=== PATIENT | female | born 1965 | race Caucasian/White ===

== ENCOUNTER → 2019-09-17 10:05 | Outpatient (CLI) | payer BC, SELFPAY ==
--- NOTE | 2019-09-17 10:12 | XR_ITS ---
PROCEDURE: XR COCCYX 2V CLINICAL INDICATION: LUMBARGO WITH LT SCIATICA, COCCYDYNIA COMPARISON: ABDPELW CT ABD PELVIS W/ CONTRAST from 11/18/2015 FINDINGS: There is 90 degrees anterior angulation of the coccyx. There is some coarse calcification noted within the soft tissues superficial to the area of angulation. This had a similar appearance on an older CT scan of 11/18/2015. IMPRESSION: 1. Abrupt anterior angulation of the coccyx. 2. Coarse calcification within the soft tissues overlying the coccyx which could be due to old injury/heterotopic ossification, chronic inflammation or infection. Consider CT scan of the coccyx for further evaluation Dictated by: Sukh Neumann MD 09/17/2019 17:38 Electronically signed by Sukh Neumann MD in [place] 09/17/2019 17:38
--- NOTE | 2019-09-17 10:12 | XR_ITS ---
PROCEDURE: XR LUMBAR SPINE MIN 4V CLINICAL INDICATION: LUMBARGO WITH LT SCIATICA, COCCYDYNIA COMPARISON: No exams were available for comparison FINDINGS: Normal alignment. No fracture or dislocation. Partial lumbarization of S1. Generalized vascular calcification. IMPRESSION: Negative lumbar spine Dictated by: Sukh Neumann MD 09/17/2019 17:35 Electronically signed by Sukh Neumann MD in [facility] 09/17/2019 17:35
== END ==
PROVIDERS: PCP Nurse Practitioner Family; Visit Provider Nurse Practitioner Family
DX: M54.42 Lumbago with sciatica, left side (principal); M53.3 Sacrococcygeal disorders, not elsewhere classified
CPT/HCPCS: 72110; 72220

== ENCOUNTER → 2020-05-25 12:19 | Outpatient (CLI) | payer BC, SELFPAY | PROVIDERS: PCP Nurse Practitioner Family; Visit Provider Nurse Practitioner Family | DX: R00.2 Palpitations (principal) | CPT/HCPCS: 93225; 93226 ==

== ENCOUNTER → 2020-05-27 14:21 | Outpatient (CLI) | payer BC, SELFPAY | PROVIDERS: Visit Provider Family Medicine | DX: R19.7 Diarrhea, unspecified (principal); D72.829 Elevated white blood cell count, unspecified | CPT/HCPCS: 87045; 87205; 87493 ==

== ENCOUNTER → 2020-05-28 11:29 | Outpatient (CLI) | payer BC, SELFPAY ==
--- NOTE | 2020-05-28 11:44 | XR_ITS ---
PROCEDURE: XR CHEST AP CLINICAL HISTORY: Shortness of air, smoker COMPARISON: CXR CHEST(2 VIEWS-NOT PORTABLE) from 01/04/2016 CXR CHEST(2 VIEWS-NOT PORTABLE) from 04/10/2017 XR CHEST 2V from 01/07/2020 FINDINGS: The cardiomediastinal silhouette and pulmonary vascularity are within normal limits. The lungs are clear without infiltrates, suspicious nodules, or pleural effusions. Is thoracic curvature convex. Faint nodular opacity overlies lower may be due to nipple IMPRESSION: No acute findings. Dictated by: Sukh Neumann MD 05/28/2020 15:28 Electronically signed by Sukh Neumann MD in [place] 05/28/2020 15:28
[2020-05-28 12:31] LABS: Coronavirus 19 IgG Antibody Negative (Negative); Coronavirus 19 IgM Antibody Negative (Negative)
[2020-05-30 12:08] LABS: Peripheral Smear Review Scanned Result
== END ==
PROVIDERS: PCP Nurse Practitioner Family; Visit Provider Nurse Practitioner Family
DX: Z03.818 Encounter for observation for suspected exposure to other biological agents ruled out (principal); D72.829 Elevated white blood cell count, unspecified
CPT/HCPCS: 71045; 86328; 87040

== ENCOUNTER → 2020-06-19 08:51 | Outpatient (CLI) | payer BC, SELFPAY ==
--- NOTE | 2020-06-19 08:55 | CT_ITS ---
PROCEDURE: CT SINUS WO CON CLINICAL HISTORY: LEUKOCYTOSIS,DIZZINESS,DENTAL ABSCESS Dental abscess with possible sinus involvement on the left COMPARISON: No exams were available for comparison TECHNIQUE: Axial images obtained with sagittal and coronal reformats. All CT scans at the facility use one or more dose reduction, viz: automated exposure control, ma/kV adjustment per patient size (including targeted exams where dose is matched to indication, i.e. head), or iterative reconstruction technique. FINDINGS: No significant mucosal thickening or sinus air-fluid levels. The frontal, ethmoid, sphenoid, and maxillary sinuses have an unremarkable appearance. No mastoid effusion. There are bilateral numerous fillings in the teeth with artifact. The molar roots extend to the floor of the sinuses but do not extend through the wall of the sinuses. No obvious abscess or bony erosive changes there is mild prominence of the tonsils left greater than right which could be due to underlying inflammatory changes. Scattered small nodes are present in the neck. IMPRESSION: No acute finding CT sinuses. Mild prominence of the tonsils which could be due to underlying inflammatory change with scattered small cervical lymph nodes Dictated by: Sukh Neumann MD 06/19/2020 17:49 Electronically signed by Sukh Neumann MD in [place] 06/19/2020 17:49
== END ==
PROVIDERS: PCP Nurse Practitioner Family; Visit Provider Nurse Practitioner Family
DX: K04.7 Periapical abscess without sinus (principal); R42 Dizziness and giddiness; D72.829 Elevated white blood cell count, unspecified
CPT/HCPCS: 70486

== ENCOUNTER → 2020-07-13 10:00 | Outpatient (CLI) | payer BC, SELFPAY ==
--- NOTE | 2020-07-13 10:03 | MR_ITS ---
PROCEDURE: MR HEAD/BRAIN WO CON CLINICAL INDICATION: DIZZINESS, LEUKOCYTOSIS DIZZINESS AND HEADACHE ON LT SIDE. LEUKOCYTOSIS. PRIOR MRA 08-14-13 COMPARISON: No exams were available for comparison TECHNIQUE: Routine multiplanar multi echo sequences are performed without gadolinium enhancement. FINDINGS: No midline shift, mass effect, intracranial hemorrhage, or hydrocephalus is evident. The cerebellopontine angles, cerebellum, and brainstem have an unremarkable appearance. There are few subcortical and periventricular T2 white matter hyperintensities which do not demonstrate restricted diffusion and may be due to small ischemic gliotic foci. The pituitary, optic chiasm, corpus callosum, and craniocervical junction have an unremarkable appearance. There is fluid signal intensity in the right mastoid sinus. No paranasal sinus air-fluid levels evident. IMPRESSION: 1. No acute intracranial findings. 2. Right mastoid sinus disease. 3. Scattered periventricular and subcortical T2 white matter hyperintensities which may be due to ischemic gliotic change from microvascular disease. Differential diagnosis would include migraine headache and demyelinating process. Correlation with clinical parameters needed. Dictated by: Sukh Neumann MD 07/14/2020 12:55 Sukh Neumann MD in [place] 07/14/2020 12:55
== END ==
PROVIDERS: PCP Nurse Practitioner Family; Visit Provider Nurse Practitioner Family
DX: R42 Dizziness and giddiness (principal); D72.829 Elevated white blood cell count, unspecified
CPT/HCPCS: 70551

== ENCOUNTER → 2020-12-03 16:15 | Outpatient (CLI) | payer BC, SELFPAY | PROVIDERS: PCP Nurse Practitioner; Visit Provider Nurse Practitioner | DX: Z20.828 Contact with and (suspected) exposure to other viral communicable diseases (principal); U07.1 COVID-19 | CPT/HCPCS: U0003 ==

== ENCOUNTER → 2021-01-18 15:49 | Outpatient (CLI) | payer BC, SELFPAY ==
--- NOTE | 2021-01-18 15:51 | CA_ITS ---
APPROVED REPORT EXAM: Comprehensive 2D, Doppler, and color-flow Echocardiogram Project Eng: Gabe RCS, RVS Ht: 5 ft 3 in Wt: 121lbs BSA: 1.56 BP: 118/57 mmHg Indications: Hx-MVP, Pre-op 2D Dimensions LVOT 1.72 cm (M/F) 1.5-2.5 LA Volume 46.90 mL LA Volume Index 29.30 mL/m2 (M/F) 16-34 M-Mode Dimensions RVDd 1.28 cm (0.9-2.6) LA Diam 3.77 cm (1.9-4.0) LVDd 5.09 cm (3.5-5.7) Ao Diam 1.60 cm (2.0-3.7) LVDs 3.10 cm (3.5-5.7) IVSd 0.81 cm (0.6-1.1) PWd 0.84 cm (0.6-1.1) EF (Teich) 66.60% FS 36.90% EDV (Teich) 113.40 mL TAPSE 2.62 (<1.7) ESV (Teich) 37.90 mL LV Diastology E Decel Time 203.00 (160-240 msec) E/A Ratio 1.54 MED E' 10.60 (< 7 cm/sec) MED A' 8.60 cm/s E'/MED E' Ratio 9.75 (>14) LAT E' 10.30 (<10 cm/sec) LAT A' 7.30 cm/s E/LAT E' Ratio 10.04 (>14) Aortic Valve AoV Peak Adis. 150.00 (50-130 cm/s) AO Peak GR. 9.00 mmHg AO Mean GR. 4.90 (<5 mmHg) AO VTI 31.56 (18-25 cm) Mitral Valve MV A Velocity 67.00 (40-130 cm/s) E/A Ratio 1.54 MV Decel. Time 203.00 (160-240 ms) Pulmonary Valve PV Peak Velocity 101.00 (50-150 cm/s) Tricuspid Valve TR P. Velocity 246.00 cm/s RAP Estimate 10.00 mmHg RVSP 34.30 mmHg Left Ventricle Left atrium is normal size, left ventricle is normal size, there is no concentric left ventricular hypertrophy, visually estimated ejection fraction 55% with no regional wall motion abnormality, diastolic parameters are within normal range. Right Ventricle Right atrium and right ventricle are normal size and contractility. Aortic Valve Aortic valve is grossly normal, there is no aortic stenosis or aortic insufficiency. Mitral Valve Mitral valve is minimally thickened, there is no obvious mitral valve prolapse, there is trace mitral regurgitation. Tricuspid Valve Tricuspid valve grossly normal, there is trace tricuspid regurgitation. Pulmonic Valve Pulmonic valve is poorly visualized. Great Vessels Aortic root is normal size. Pericardium No significant pericardial effusion noted. Conclusion 1. Normal left ventricular size, preserved left ventricular systolic function, visually estimated ejection fraction 55% with no regional wall motion abnormality, diastolic parameters are within normal range. 2. No obvious mitral valve prolapse seen, there is trace mitral regurgitation. 3. No significant pericardial effusion noted. Electronically signed by : Chilo Solomon, 01/18/2021 19:05:03
== END ==
PROVIDERS: PCP Family Medicine; Visit Provider Urology
DX: Z01.810 Encounter for preprocedural cardiovascular examination (principal); R06.00 Dyspnea, unspecified; I34.1 Nonrheumatic mitral (valve) prolapse
CPT/HCPCS: 93306

== ENCOUNTER → 2021-01-20 08:16 | Outpatient (CLI) | payer BC, SELFPAY ==
[2021-01-20 08:52] LABS: Basophils # 0.2 K/mm3 (0-0.2); Basophils % 0.9 % (0.1-2.0); Eosinophils # 0.1 K/mm3 (0.0-0.4); Eosinophils % 0.8 % (0.1-12.0); Hematocrit 44.3 % (37.0-47.0); Hemoglobin 14.1 g/dL (12.2-16.2); Lymphocytes # 2.8 K/mm3 (0.7-4.5); Lymphocytes % 16.5 % (10-50); Mean Corpuscular HGB Conc 31.7 g/dL (31.8-35.4); Mean Corpuscular Hemoglobin 29.4 pg (27.0-31.2); Mean Corpuscular Volume 92.6 fl (81-99); Mean Platelet Volume 7.7 fl (7.4-10.4); Monocytes # 0.8 K/mm3 (0.1-1.0); Monocytes % 4.9 % (1.7-9.3); Neutrophils % 76.8 % (37.0-80.0); Platelet Count 387 K/mm3 (142-424); Red Blood Count 4.79 M/mm3 (4.20-5.40); Red Cell Distribution Width 13.7 % (11.5-17.5)
[2021-01-20 08:54] LABS: MANUAL DIFFERENTIAL MANUAL DIFFERENTIAL (MANUAL DIFF)
[2021-01-20 09:57] LABS: Lymphocytes % 8 % (10-50); Monocytes % 2 % (2-9); Neutrophils % 90 % (42-76); Total Cells Counted 100
[2021-01-20 09:58] LABS: Platelet Estimate Normal; RBC Morphology Normal
== END ==
PROVIDERS: PCP Family Medicine; Visit Provider Otolaryngology
DX: Z01.818 Encounter for other preprocedural examination (principal); Z20.822 Contact with and (suspected) exposure to COVID-19; L57.0 Actinic keratosis
CPT/HCPCS: 36415; 85007; 85025; U0003

== ENCOUNTER 2021-01-21 06:13 | Day surgery (SDC) | payer BC, SELFPAY ==
[2021-01-15 15:09] VITALS: BMI 22.1
[2021-01-21 06:31] VITALS: BP 118/56; PULSE 76; RESP 18; TEMP 36.3; O2SAT 99; BMI 22.1
--- NOTE | 2021-01-21 07:07 | HMH.ANESCL ---
[facility] Anesthesia Checklist - Structural Data Admitted From: Home Planned Operative Procedure/s: excision neoplasm face x 2 Consent for Planned Operative Procedure(s) Verified: Yes - Additional verifications Anesthesia Reactions: No Hx Blood Transfusions: No Blood Transfusion Reaction: No - Airway Assessment C-Spine Mobility Assessed: Yes TMJ Mobility Assessed: Yes Dentition: Partials - Neurological Assessment Level of Consciousness: Awake, Alert, Appropriate - Anesthesia Plan Anesthesia Risk discussed: Yes Anesthesia Plan: Verified ASA Class: II Anesthesia Type: MAC [facility] History I have reviewed the patient's past medical history: Yes Medical History: Reports:: Chronic Obstructive Pulmonary Disease (COPD), Hyperlipidemia, Hypertension, MRSA (groin) Denies:: Cancer, Diabetes Mellitus Type 1, Diabetes Mellitus Type 2, Internal Pacemaker, Seizures *Have you ever received a pneumonia vaccine?: No *Have you received a flu vaccine this season?: Yes Other Medical History: Reports: Other. Denies: Blood Transfusion Reaction Anesthesia experience/problems:: none Laterality Cases: Left: Other Other Surgeries: Yes: , Sinus Surgery, Other. No: Pacemaker Amputation: No Fractures: No - *Social History Last grade of school completed: High school graduate Smoking Status: Current every day smoker Tobacco Type: cigarettes # Packs/Day (cigarettes): 1 Alcohol Intake: never Substance Use Type: denies use *Occupational Status:: unemployed Housing: house Household Members: spouse *Travel in the last 8 weeks: None Family Hx:: Diabetes
[2021-01-21 08:18] VITALS: BP 97/70; PULSE 82; RESP 18; TEMP 36.4; O2SAT 95
--- NOTE | 2021-01-21 08:25 | HMH.OPNOTE ---
Date of procedure: 01/21/21 Pre-op Diagnosis:: 1. Right side of nose 2.5 cm 2. As 1 right cheek 2.2 cm Post-op Diagnosis:: Same Procedure performed:: 1. 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 Excision of neoplasm right cheek 2.2 cm with tissue rearrangement Z-plasty repair Surgeon:: Jose M Thakur MD WOOD BORING MACHINE OPERATOR:: Boone Hemphill [facility] Anesthesia: GETA, MAC Estimated blood loss (mL): 5 Operative findings:: Same Operative note:: With the patient under a MAC type of anesthesia the face was prepped and draped the eyes were protected with Steri-Strips the perilesional areas on the nose and right cheek were infiltrated with a total of 3.5 cc of 2% lidocaine with epinephrine. The lesion on the right side of the nose measured 2.5 cm the marked out was incised and the lesion was excised to the level of the lower lateral cartilages. Stopped with bipolar cautery Surgicel snow was placed in the defect lateral incisions were made and a tissue rearrangement Z-plasty repair was done with interrupted 3-0 nylon sutures. None the right cheek was marked out it measured 2.2 cm the ryan up was incised and the lesion was excised and submitted bleeding was stopped with bipolar cautery. Anterior and posterior incisions were made and a tissue rearrangement Z-plasty repair was done after Surgicel snow was placed in the defect with 3-0 nylon sutures a Dermabond dressing was applied to both sites and the patient was sent to recovery in good general condition blood loss was 5 cc and completely stopped. Signed Jose M Thakur MD Condition: stable Disposition: PACU Complications:: None
[2021-01-21 08:33] VITALS: BP 99/57; PULSE 68; RESP 18; TEMP 36.4; O2SAT 98
[2021-01-21 08:50] VITALS: BP 108/64; PULSE 64; RESP 18; TEMP 36.4; O2SAT 98
== END 2021-01-21 08:50 | disposition home or self-care (01) ==
LOC: OR 06:14
PROVIDERS: PCP Family Medicine; Visit Provider Otolaryngology
PROC: (CPT 14060; principal; 2021-01-21 07:30)
DX: L57.0 Actinic keratosis (principal); J44.9 Chronic obstructive pulmonary disease, unspecified; E78.5 Hyperlipidemia, unspecified; I10 Essential (primary) hypertension; Z86.14 Personal history of Methicillin resistant Staphylococcus aureus infection; Z72.0 Tobacco use; Z86.79 Personal history of other diseases of the circulatory system; Z88.6 Allergy status to analgesic agent; Z88.1 Allergy status to other antibiotic agents; Z88.0 Allergy status to penicillin; Z88.8 Allergy status to other drugs, medicaments and biological substances
CPT/HCPCS: 14060; 14040; 96374

== ENCOUNTER → 2021-12-15 10:59 | Outpatient (CLI) | payer BC, SELFPAY | PROVIDERS: Visit Provider Nurse Practitioner | DX: U07.1 COVID-19 (principal) | CPT/HCPCS: C9803; U0003; U0005 ==

== ENCOUNTER → 2023-04-07 14:28 | Outpatient (CLI) | payer BC, SELFPAY ==
--- NOTE | 2023-04-07 14:42 | XR_ITS ---
FINAL REPORT CLINICAL HISTORY: LT FOOT PAIN AND SWELLING. 4TH AND 5TH DIGITS COMPARISON: None FINDINGS: Three views of the left foot were obtained. There is no acute fracture or dislocation. The joint spaces are intact. There is no soft tissue abnormality. IMPRESSION: No acute fracture Reviewed, Interpreted and Dictated by Chetan Salvador MD Transcribed by Stephanie Grajeda Authenticated and [facility]
== END ==
PROVIDERS: PCP Nurse Practitioner Family; Visit Provider Nurse Practitioner Family
DX: M79.672 Pain in left foot (principal); S99.922A Unspecified injury of left foot, initial encounter; R22.42 Localized swelling, mass and lump, left lower limb
CPT/HCPCS: 73630

== ENCOUNTER 2024-07-31 07:58 | Outpatient (CLI) | payer BC, SELFPAY ==
--- NOTE | 2024-07-31 08:07 | MM_ITS ---
PROCEDURE INFORMATION: Exam: MG Bilateral Screening 3D Mammography Exam date and time: 07/31/2024 7:57 AM Age: 59 years old Clinical indication: Screening mammogram TECHNIQUE: Imaging protocol: Bilateral Screening tomosynthesis and 2D mammography including computer-aided detection (CAD) when performed. COMPARISON: 1. MG DMSB DIG MAMM-SCREEN ELLA 06/20/2016 4:00 PM 2. MG DMSB DIG MAMM-SCREEN ELLA 10/09/2013 4:23 PM 3. MG DIGMAMMS MAMMOGRAM SCREEN-SHERIFF'S DETECTIVE N/C 01/27/2009 4:33 PM 4. MG DIGMAMMS MAMMOGRAM SCREEN-SHERIFF'S DETECTIVE N/C 12/20/2007 4:33 PM FINDINGS: MAMMOGRAPHY: Breast composition: There are scattered areas of fibroglandular density. Mass: Stable benign-appearing subcentimeter nodules are present in the left breast. No new or morphologically suspicious nodule has developed to suggest malignancy. Architectural distortion: No new or suspicious architectural distortion. Calcifications: No new or suspicious calcifications are present Asymmetric density: No new or suspicious asymmetric density is present Skin thickening: None. Axillary adenopathy: None. IMPRESSION: No mammographic evidence of malignancy. Recommend annual screening mammography unless otherwise clinically indicated. ASSESSMENT: BI-RADS category 2: Benign.
== END 2024-07-31 23:59 | disposition home or self-care (01) ==
LOC: RAD 07:59
PROVIDERS: PCP Family Medicine; Visit Provider Nurse Practitioner
DX: Z12.31 Encounter for screening mammogram for malignant neoplasm of breast (principal)
CPT/HCPCS: 77063; 77067

== ENCOUNTER 2025-04-18 07:43 | Outpatient (CLI) | payer BC, SELFPAY ==
--- NOTE | 2025-04-18 07:47 | CT_ITS ---
FINAL REPORT TECHNIQUE: Noncontrast exam This study was performed with techniques to keep radiation doses as low as reasonably achievable, (ALARA). Individualized dose reduction techniques using automated exposure control or adjustment of mA and/or kV according to the patient''s size were employed. CLINICAL HISTORY: LIGHTHEADEDNESS COMPARISON: None FINDINGS: CT HEAD WITHOUT CONTRAST: No abnormal density is seen. Ventricles are normal. There is no hemorrhage. No mass effect is seen. Bone windows show no evidence of fracture. IMPRESSION: No acute findings Reviewed, Interpreted and Dictated by Chetan Salvador MD Transcribed by Iona Fox Authenticated and [facility]
== END 2025-04-18 23:59 | disposition home or self-care (01) ==
PROVIDERS: PCP Family Medicine; Visit Provider Nurse Practitioner
DX: R42 Dizziness and giddiness (principal)
CPT/HCPCS: 70450